=== PATIENT | female | born 1990 | race Caucasian/White ===

== ENCOUNTER → 2024-09-28 12:33 | Outpatient (REF) | payer OTHER, SELFPAY | LOC: PAVMRI 12:33 | PROVIDERS: ATTENDING PHYSICIAN Otolaryngology Facial Plastic Surgery; FAMILY PHYSICIAN Family Medicine | DX: H90.42 Sensorineural hearing loss, unilateral, left ear, with unrestricted hearing on the contralateral side (principal); R42 Dizziness and giddiness | CPT/HCPCS: 70553; A9575 ==